=== PATIENT | male | born 1955 | race Hispanic/Latino ===

== ENCOUNTER 2016-10-22 08:15 | Emergency (ER) | payer MEDICARE ==
[2016-10-22 08:15] VITALS: BMI 34.4
[2016-10-22 08:30] VITALS: TEMP 98.2
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
[2016-10-22 11:09] VITALS: RESP 18
[2016-10-22 12:14] VITALS: BP 138/87; PULSE 86; O2SAT 100
--- NOTE | 2016-10-22 13:59 | RAD ---
PROCEDURE: Left Hand Radiographs. HISTORY: hand pain s/p trauma COMPARISON: None. FINDINGS: BONES: Normal. No fracture. JOINTS: Mild osteoarthritic changes. SOFT TISSUES: Normal. OTHER FINDINGS: None. IMPRESSION: No evidence of acute fracture or dislocation.
--- NOTE | 2016-10-22 14:01 | RAD ---
PROCEDURE: Right Knee Radiographs. HISTORY: knee pain s/p trauma COMPARISON: None. FINDINGS: BONES: Normal. No fracture. JOINTS: Mild osteoarthritic changes JOINT EFFUSION: None. OTHER FINDINGS: None. IMPRESSION: No evidence of acute fracture or dislocation. Mild osteoarthritic changes.
== END 2016-10-22 12:12 | disposition home or self-care (01) ==
LOC: ED 08:15
DX: S60.512A Abrasion of left hand, initial encounter (principal); S83.91XA Sprain of unspecified site of right knee, initial encounter; V18.4XXA Pedal cycle driver injured in noncollision transport accident in traffic accident, initial encounter; Y92.410 Unspecified street and highway as the place of occurrence of the external cause

== ENCOUNTER 2017-07-19 02:46 | Emergency (ER) | payer MEDICARE ==
[2017-07-19 02:46] VITALS: BMI 34.4
[2017-07-19 03:21] VITALS: O2SAT 96
[2017-07-19] MEDS ORDERED: Albuterol-Ipratrop 3 mg / 0.5 (3 ml) UD IH STA (03:36)
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
[2017-07-19] MEDS ORDERED: Amoxicillin-Clav 875-125 mg Tab PO STA (05:16)
[2017-07-19] MEDS ORDERED: guaiFENesin-Codeine 100-10mg/5ml Syrup (5 ml) UD PO ONE (05:17)
[2017-07-19 05:27] VITALS: BP 138/72; PULSE 89; RESP 17; TEMP 97.9
--- NOTE | 2017-07-19 09:45 | RAD ---
HISTORY: cough COMPARISON: 09/29/2016 FINDINGS: LUNGS: No active pulmonary disease. PLEURA: No significant pleural effusion identified, no pneumothorax apparent. CARDIOVASCULAR: Normal. OSSEOUS STRUCTURES: No significant abnormalities. VISUALIZED UPPER ABDOMEN: Normal. OTHER FINDINGS: None. IMPRESSION: No active disease.
== END 2017-07-19 05:27 | disposition home or self-care (01) ==
LOC: ED 02:46
DX: J44.1 Chronic obstructive pulmonary disease with (acute) exacerbation (principal); Z87.891 Personal history of nicotine dependence

== ENCOUNTER 2017-08-16 01:39 | Emergency (ER) | payer MEDICARE ==
[2017-08-16 01:50] VITALS: BMI 35.7
[2017-08-16] MEDS ORDERED: Albuterol-Ipratrop 3 mg / 0.5 (3 ml) UD IH STA ×2 (01:50→02:27)
[2017-08-16 01:52] VITALS: O2SAT 97
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
[2017-08-16] MEDS: Albuterol-Ipratrop 3 mg / 0.5 (3 ml) UD ONE ×3 (01:56→02:46)
[2017-08-16] MEDS ORDERED: guaiFENesin-Codeine 100-10mg/5ml Syrup (5 ml) UD PO ONE (02:31)
[2017-08-16 04:24] VITALS: BP 123/74; PULSE 91; RESP 20; TEMP 98
[2017-08-16] MEDS ORDERED: Amoxicillin-Clav 875-125 mg Tab PO STA (04:30)
--- NOTE | 2017-08-16 09:10 | RAD ---
HISTORY: fever COMPARISON: 07/19/2017. FINDINGS: LUNGS: The lungs are clear. PLEURA: No significant pleural effusion identified, no pneumothorax apparent. CARDIOVASCULAR: Normal. OSSEOUS STRUCTURES: No significant abnormalities. VISUALIZED UPPER ABDOMEN: Normal. OTHER FINDINGS: None. IMPRESSION: No active pulmonary disease.
== END 2017-08-16 04:47 | disposition home or self-care (01) ==
LOC: ED 01:39
DX: J44.9 Chronic obstructive pulmonary disease, unspecified (principal); Z87.891 Personal history of nicotine dependence
CPT/HCPCS: 71045; 96374; 99283; J2930

== ENCOUNTER 2018-01-10 15:20 | Emergency (ER) | payer MEDICARE ==
[2018-01-10 15:20] VITALS: BMI 35.7
[2018-01-10 15:35] VITALS: RESP 18; O2SAT 98
[2018-01-10] MEDS ORDERED: Sodium Chloride 0.9% 1,000 ML IV STA (16:01)
[2018-01-10] MEDS ORDERED: Iohexol 240 (50 ml) ONE (16:07)
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
[2018-01-10 16:52] LABS: URINE BILIRUBIN NEGATIVE (NEGATIVE); URINE BLOOD NEGATIVE (NEGATIVE); URINE GLUCOSE (UA) NEGATIVE (NEGATIVE); URINE LEUKOCYTE ESTERASE NEGATIVE Leu/uL (NEGATIVE); URINE PROTEIN NEGATIVE mg/dL (<30 mg/dL); URINE UROBILINOGEN 0.2 E.U./dL (<1 E.U./dL)
[2018-01-10 17:01] LABS: URINE APPEARANCE CLEAR (CLEAR); URINE COLOR YELLOW (YELLOW)
[2018-01-10 17:46] LABS: ALB/GLOB RATIO 1.2 (1.1-1.8); ALBUMIN 4.4 g/dL (3.0-4.8); CALCIUM 9.4 mg/dL (8.4-10.5); GFR AFRICAN-AMERICAN > 60; GFR NON-AFRICAN AMERICAN > 60; LIPASE 199 U/L (23-300)
[2018-01-10 17:47] LABS: BASO # 0.03 K/mm3 (0.0-2.0); BASO % 0.4 % (0.0-3.0); EOS # 0.2 (0.0-0.7); EOS % 2.1 % (1.5-5.0); GRAN # 4.81 (1.4-6.5); GRAN % 57.4 % (50.0-68.0); HEMOGLOBIN 15.8 g/dL (14.0-18.0); LYMPH # 2.8 (1.2-3.4); LYMPH % 33.3 % (22.0-35.0); MEAN CELL VOLUME 88.8 fl (80.0-105.0); MEAN CORPUSCULAR HEMOGLOBIN 30.6 pg (25.0-35.0); MEAN CORPUSCULAR HGB CONC 34.5 g/dl (31.0-37.0); MEAN PLATELET VOLUME 10.3 fl (7.0-11.0); MONO # 0.6 (0.1-0.6); MONO % 6.8 % (1.0-6.0); RBC 5.16 10^6/uL (3.5-6.1); RED CELL DISTRIBUTION WIDTH 13.2 % (11.5-14.5); WHITE BLOOD COUNT 8.4 10^3/ul (4.5-11.0)
[2018-01-10 17:55] LABS: ALT/SGPT 93 U/L (7-56); AST/SGOT 53 U/L (17-59); BLOOD UREA NITROGEN 16 mg/dL (7-21)
[2018-01-10 17:59] LABS: INR 0.93 (0.93-1.08); PARTIAL THROMBOPLASTIN TIME 31.8 Seconds (25.1-36.5); PROTHROMBIN TIME 10.6 SECONDS (9.4-12.5)
[2018-01-10 18:27] LABS: VENOUS BLOOD GAS BASE EXCESS 0.2 mmol/L (0.0-2.0); VENOUS BLOOD GAS PO2 56 mm/Hg (30-55); VENOUS BLOOD PH 7.33 (7.32-7.43)
[2018-01-10] MEDS ORDERED: Iodixanol 320 MG/ML 100 ML BOTTLE IV ONE (18:35)
--- NOTE | 2018-01-10 20:03 | ED PDOC ---
Physical Exam Vital Signs Reviewed: Yes Vital Signs Temp Pulse Resp BP Pulse Ox 01/10/18 15:33 98.9 F 72 18 150/80 98 Temperature: Afebrile Blood Pressure: Normal Pulse: Regular Respiratory Rate: Normal Appearance: Positive for: Well-Appearing, Non-Toxic, Comfortable Pain Distress: None Mental Status: Positive for: Alert and Oriented X 3 Medical Decision Making ED Course and Treatment: 01/10/18 19:16 Patient endorsed to me by Dr. Wright. Pending CT scan results. EXAM: CT Abdomen and Pelvis With Intravenous Contrast Dictated and Authenticated by: Estrella Campbell MD 01/10/2018 7:28 PM IMPRESSION: Chronic postsurgical changes as described. No acute findings in the abdomen or pelvis to explain left-sided pain. 1.6 cm indeterminate lesion in the right kidney should be followed up with multiphase contrast enhanced CT or MRI. 01/10/18 22:09 On re-evaluation, patient feels better and is in no acute distress. I have discussed the results and plan with the patient, who expresses understanding. Patient in agreement with plan to be discharged home. Patient is stable for discharge. Patient was instructed to follow up with physician or return if symptoms worsen or new concerning symptoms arise. - Lab Interpretations Lab Results: 01/10/18 17:20 01/10/18 17:20 Lab Results 01/10/18 18:21: pO2 56 H, VBG pH 7.33, VBG pCO2 51.0, VBG HCO3 26.9, VBG Total CO2 28.5 H, VBG O2 Sat (Calc) 92.0 H, VBG Base Excess 0.2, VBG Potassium 4.8, Glucose 175 H, Lactate 2.1, FiO2 21.0, Sodium 140.0, Chloride 104.0, Venous Blood Potassium 4.8 01/10/18 17:20: Sodium 144, Potassium 4.4, Chloride 106, Carbon Dioxide 23, Anion Gap 20, BUN 16, Creatinine 0.8, Est GFR ( Amer) > 60, Est GFR (Non- Af Amer) > 60, Random Glucose 171 H, Calcium 9.4, Magnesium 2.0, Total Bilirubin 0.7, AST 53, ALT 93 H, Alkaline Phosphatase 64, Total Protein 7.9, Albumin 4.4, Globulin 3.5, Albumin/Globulin Ratio 1.2, Lipase 199 01/10/18 17:20: PT 10.6, INR 0.93, APTT 31.8 01/10/18 17:20: WBC 8.4, RBC 5.16, Hgb 15.8, Hct 45.8, MCV 88.8, MCH 30.6, MCHC 34.5, RDW 13.2, Plt Count 312, MPV 10.3, Gran % 57.4, Lymph % (Auto) 33.3, [place] % (Auto) 6.8 H, Eos % (Auto) 2.1, Baso % (Auto) 0.4, Gran # 4.81, Lymph # (Auto ) 2.8, [place] # (Auto) 0.6, Eos # (Auto) 0.2, Baso # (Auto) 0.03 01/10/18 16:35: Urine Color Yellow, Urine Appearance Clear, Urine pH 6.0, Ur Specific [place] >= 1.030, Urine Protein Negative, Urine Glucose (UA) Negative, Urine Ketones Negative, Urine Blood Negative, Urine Nitrate Negative, Urine Bilirubin Negative, Urine Urobilinogen 0.2, Ur Leukocyte Esterase Negative - RAD Interpretation Radiology Orders: 01/10/18 16:01 ABD PELVIS PO & IV CONTRAST [CT] Stat - Medication Orders Current Medication Orders: Sodium Chloride (Sodium Chloride 0.9%) 1,000 mls @ 100 mls/hr IV .Q10H STA Stop: 01/11/18 02:00 Last Admin: 01/10/18 19:00 Dose: 100 mls/hr eMAR Start Stop Document 01/10/18 19:00 [place] (Rec: 01/10/18 19:00 [place] [id number]) Intravenous Solution Start Date 01/10/18 Start Time 19:00 - Scribe Statement The provider has reviewed the documentation as recorded by the Scribe Ricky Connolly All medical record entries made by the Nelidaibeleno were at my direction and personally dictated by me. I have reviewed the chart and agree that the record accurately reflects my personal performance of the history, physical exam, medical decision making, and the department course for this patient. I have also personally directed, reviewed, and agree with the discharge instructions and disposition. Disposition/Present on Arrival - Present on Arrival Any Indicators Present on Arrival: No History of DVT/PE: No History of Uncontrolled Diabetes: No Urinary Catheter: No History of Decub. Ulcer: No History Surgical Site Infection Following: None - Disposition Have Diagnosis and Disposition been Completed?: Yes Diagnosis: Left flank pain Disposition: HOME/ ROUTINE Disposition Time: 21:23 Patient Plan: Discharge Patient Problems: Current Active Problems Problem Status Onset Left flank pain Acute Condition: STABLE Discharge Instructions (ExitCare): Flank Pain (DC) Print Language: BELARUSIAN Additional Instructions: Mr Gooden - All of your tests tonight, including the CT scan are unremarkable and do not explain why you are having this flank pain. Follow up with your doctor tomorrow by phone. Return to us if any problems. Gabriel- Dr. Julien Hernandez Forms: [employer] (Amharic)
[2018-01-10 22:38] VITALS: BP 145/79; PULSE 82; TEMP 98.7
--- NOTE | 2018-01-11 08:30 | CT ---
PROCEDURE: CT Abdomen and Pelvis with contrast HISTORY: left flank/abd pain x 1 month, intermittent COMPARISON: None. TECHNIQUE: Contrast dose: 100 mL Omnipaque 350 Radiation dose: Total exam DLP = 1090.95 mGy-cm. This CT exam was performed using one or more of the following dose reduction techniques: Automated exposure control, adjustment of the mA and/or kV according to patient size, and/or use of iterative reconstruction technique. FINDINGS: LOWER THORAX: Unremarkable. LIVER: Diffusely diminished attenuation consistent with fatty infiltration. Smooth contour. No mass. Normal size. No biliary dilatation. GALLBLADDER AND BILE DUCTS: Status post cholecystectomy. PANCREAS: Unremarkable. No gross lesion or ductal dilatation. SPLEEN: Unremarkable. ADRENALS: Unremarkable. No mass. KIDNEYS AND URETERS: Status post left nephrectomy. Nonspecific rounded intermediate attenuation mass in the mid right kidney, 1.5 cm. This has 8 attenuation of 61 Hounsfield units. Evaluation with ultrasound is advised. Several very small right renal cortical cysts. Multiple right parapelvic renal cysts. No hydronephrosis. No calculus. VASCULATURE: Unremarkable. No aortic aneurysm. BOWEL: Unremarkable. No obstruction. No gross mural thickening. APPENDIX: Normal appendix. PERITONEUM: Unremarkable. No free fluid. No free air. LYMPH NODES: Unremarkable. No enlarged lymph nodes. BLADDER: Nondistended REPRODUCTIVE: Normal prostate BONES: No acute fracture. OTHER FINDINGS: None. IMPRESSION: Status post left nephrectomy and cholecystectomy. Fatty infiltration of the liver, diffuse. No evidence of biliary obstruction. No evidence of urinary tract obstruction. Nonspecific intermediate attenuation rounded right renal mass. Recommend correlation with ultrasound examination. No other significant abnormality. Preliminary interpretation of this examination was reported by [facility] at 7:28 p.m. on 01/10/2018. There is concurrence of this report with the preliminary interpretation.
== END 2018-01-10 22:05 | disposition home or self-care (01) ==
LOC: ED 15:20
DX: R10.9 Unspecified abdominal pain (principal); I10 Essential (primary) hypertension; J44.9 Chronic obstructive pulmonary disease, unspecified; Z87.891 Personal history of nicotine dependence
CPT/HCPCS: 74177; 80053; 81003; 82803; 83690; 83735; 85025; 85610; 85730; 99283; J7030; Q9966; Q9967

== ENCOUNTER 2018-06-29 20:59 | Emergency (ER) | payer MEDICARE ==
[2018-06-29 21:08] VITALS: BMI 35.9
[2018-06-29 21:20] VITALS: TEMP 98.3
[2018-06-29] MEDS ORDERED: Albuterol-Ipratrop 3 mg / 0.5 (3 ml) UD IH STA (21:30)
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
[2018-06-29] MEDS ORDERED: guaiFENesin-Codeine 100-10mg/5ml Syrup (5 ml) UD PO STA (23:45)
[2018-06-30 00:03] VITALS: BP 136/71; PULSE 89; RESP 17; O2SAT 99
--- NOTE | 2018-06-30 07:39 | RAD ---
Date of service: 06/29/2018 HISTORY: cough COMPARISON: Portable chest 08/16/2017. TECHNIQUE: Chest PA and lateral FINDINGS: LUNGS: Diminished history volume. This is felt to resulting crowding of the bronchovascular markings at the bilateral bases, favored over potential atypical infiltrates. Further clinical correlation advised. PLEURA: No significant pleural effusion identified. No pneumothorax apparent. CARDIOVASCULAR: No aortic atherosclerotic calcification present. Normal cardiac size. No pulmonary vascular congestion. OSSEOUS STRUCTURES: No significant abnormalities. VISUALIZED UPPER ABDOMEN: Surgical clips identified are identified at the upper abdomen once again. OTHER FINDINGS: None. IMPRESSION: Diminished history volume is felt to be causing bronchovascular markings, which is favored over potential early but atypical infiltrates at the bilateral bases. Clinically correlate further. Examination otherwise unremarkable.
== END 2018-06-30 00:02 | disposition home or self-care (01) ==
LOC: ED 20:59
DX: R05 Cough (principal); I10 Essential (primary) hypertension; J44.9 Chronic obstructive pulmonary disease, unspecified; Z87.891 Personal history of nicotine dependence

== ENCOUNTER 2018-09-03 15:38 | Emergency (ER) | payer MEDICARE ==
[2018-09-03 15:51] VITALS: BMI 35.2
[2018-09-03 15:55] VITALS: BP 159/85; PULSE 65; RESP 18; TEMP 97.5; O2SAT 97
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
== END 2018-09-03 16:43 | disposition home or self-care (01) ==
LOC: ED 15:38
DX: T20.17XA Burn of first degree of neck, initial encounter (principal); X08.8XXA Exposure to other specified smoke, fire and flames, initial encounter; I10 Essential (primary) hypertension; Z87.891 Personal history of nicotine dependence; J44.9 Chronic obstructive pulmonary disease, unspecified

== ENCOUNTER 2018-09-12 18:02 | Emergency (ER) | payer MEDICARE ==
[2018-09-12 18:12] VITALS: RESP 18; BMI 34.4
[2018-09-12] MEDS ORDERED: DiphenhydrAMINE 50 mg/ml Inj IVP STA (18:31)
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
[2018-09-12] MEDS: Albuterol-Ipratrop 3 mg / 0.5 (3 ml) UD IH SCH ×3 (18:49→19:24)
[2018-09-12 19:00] LABS: BASO # 0.03 K/mm3 (0.0-2.0); BASO % 0.3 % (0.0-3.0); EOS # 0.2 (0.0-0.7); EOS % 1.7 % (1.5-5.0); HEMOGLOBIN 14.5 g/dL (14.0-18.0); LYMPH # 4.2 (1.2-3.4); LYMPH % 38.8 % (22.0-35.0); MEAN CELL VOLUME 90.1 fl (80.0-105.0); MEAN CORPUSCULAR HEMOGLOBIN 30.4 pg (25.0-35.0); MEAN CORPUSCULAR HGB CONC 33.7 g/dl (31.0-37.0); MEAN PLATELET VOLUME 10.4 fl (7.0-11.0); MONO # 0.8 (0.1-0.6); MONO % 7.6 % (1.0-6.0); RBC 4.77 10^6/uL (3.5-6.1); WHITE BLOOD COUNT 10.9 10^3/uL (4.5-11.0)
[2018-09-12 19:03] LABS: ALB/GLOB RATIO 1.3 (1.1-1.8); ALBUMIN 4.3 g/dL (3.0-4.8); ALT/SGPT 92 U/L (7-56); AST/SGOT 67 U/L (17-59); BLOOD UREA NITROGEN 19 mg/dL (7-21); CALCIUM 9.2 mg/dL (8.4-10.5); GFR NON-AFRICAN AMERICAN > 60
[2018-09-12 19:07] LABS: INR 1.12; PARTIAL THROMBOPLASTIN TIME 31.9 Seconds (26.9-38.3); PROTHROMBIN TIME 12.4 SECONDS (9.4-12.5)
[2018-09-12 19:15] LABS: TROPONIN I < 0.01 ng/mL
[2018-09-12 19:24] LABS: CK-MB 2.2 ng/mL (0.0-3.6)
[2018-09-12 19:59] LABS: URINE BILIRUBIN NEGATIVE (NEGATIVE); URINE BLOOD NEGATIVE (NEGATIVE); URINE GLUCOSE (UA) NEGATIVE (NEGATIVE); URINE LEUKOCYTE ESTERASE NEGATIVE Leu/uL (NEGATIVE); URINE PROTEIN NEGATIVE mg/dL (<30 mg/dL)
[2018-09-12 20:02] LABS: URINE APPEARANCE CLEAR (CLEAR); URINE COLOR YELLOW (YELLOW)
[2018-09-12 20:26] VITALS: BP 119/64; PULSE 107; TEMP 98.4; O2SAT 94
--- NOTE | 2018-09-13 08:17 | RAD ---
Date of service: 09/12/2018 HISTORY: sob COMPARISON: 06/29/2018 FINDINGS: LUNGS: No active pulmonary disease. PLEURA: No significant pleural effusion identified, no pneumothorax apparent. CARDIOVASCULAR: No aortic atherosclerotic calcification present. Normal cardiac size. No pulmonary vascular congestion. OSSEOUS STRUCTURES: No significant abnormalities. VISUALIZED UPPER ABDOMEN: Normal. OTHER FINDINGS: None. IMPRESSION: No active disease.
--- NOTE | 2018-09-13 10:20 | CARD ---
APPROVED REPORT Date of service: 09/12/2018 EKG Measurement Heart [id number] <Conclusion> Normal sinus rhythm Left axis deviation Abnormal ECG
== END 2018-09-12 20:27 | disposition home or self-care (01) ==
LOC: ED 18:02
DX: R21 Rash and other nonspecific skin eruption (principal); J44.1 Chronic obstructive pulmonary disease with (acute) exacerbation; I10 Essential (primary) hypertension; Z87.891 Personal history of nicotine dependence
CPT/HCPCS: 71045; 80053; 81003; 82550; 82553; 83615; 83735; 84484; 85025; 85610; 85730; 87804; 93005; 96374; 96375; 99284; J1200; J2930